=== PATIENT | male | born 1965 | race Caucasian/White ===

== ENCOUNTER 2019-02-11 07:34 | Day surgery (SDC) | payer OTHER ==
[2019-02-11] VITALS (15 sets, daily range): BP systolic 119–140; BP diastolic 68–87; PULSE 60–81; RESP 15–19; Ht 167.6 cm; Wt 82.3 kg
[~2019-02-11] VITALS: Ht 167.6 cm; Wt 82.3 kg
[~2019-02-11 07:34] MED LIST: SEVOFLURANE 15 MIN ONE
[2019-02-11] MEDS ORDERED: CEFAZOLIN 2 GM/50 ML (PMX) 50 ML IVPB ONE (08:00)
[2019-02-11] MEDS ORDERED: SOD CHLORIDE 0.9% 1,000 ML IV SCH (08:00)
--- NOTE | 2019-02-11 09:35 | PREAC ---
Date/Time of Note Date/Time of Note DATE: 02/11/19 TIME: 09:33 Anesthesia Eval and Record Evaluation Time Pre-Procedure Interview DATE: 02/11/19 TIME: 09:33 Age 53 Sex male NPO: 8 hrs Preoperative diagnosis cholelithiasis Planned procedure laparoscopic cholecystectomy Past Medical History Past Medical History: Includes Cardio: Dyslipidemia GI: Other (fatty liver vs. cirrhosis on imaging) Surgery & Anesthesia Issues No known issue Meds Anticoagulation: No Beta Bhavesh within 24 hr: No Reason Beta Bhavesh not given: Pt. not on B-Bhavesh No Active Prescriptions or Reported Meds Current Medications Sodium Chloride 1,000 ml @ 75 mls/hr [id number] IV ; Start 02/11/19 at 08:00; Stop 02/11/19 at 21:19 Meds reviewed: Yes Allergies Coded Allergies: No Known Drug Allergies (Unverified Allergy, Unknown, 02/10/19) Allergies Reviewed: Yes Labs/Studies Labs Reviewed: Reviewed by anesthesiologist test: N/A Pre-procedure Exam Last vitals Vital Signs Date Temp Pulse Resp B/P (MAP) Pulse Ox O2 O2 Flow FiO2 Time Delivery Rate 02/11/19 97.7 81 18 128/86 95 Room Air 08:34 (100) Airway: Adequate mouth opening, Adequate thyromental dist Mallampati: Mallampati II Teeth: Normal Lung: Normal Heart: Normal ASA Physical Status ASA physical status: 2 Emergency: None Planned Anesthetic General/MAC: ETT Nerve block: TAP (bilateral) Planned Pain Management Single shot nerve block, Parenteral pain med Pre-operative Attestations Prior to commencing anesthesia and surgery, the patient was re-evaluated, there was verification of: *The patient's identity *The results of appropriate recent lab work and preoperative vital signs *The above evaluation not changing prior to induction *Anesthetic plan, risk benefits, alternative and complications discussed with patient/family; questions answered; patient/family understands, accepts and wishes to proceed. Care Administrative Tech used LUCAS POND MD Feb 11, 2019 09:35
[2019-02-11] MEDS ORDERED: MIDAZOLAM 1 MG/ML 2 ML INJ ONE (09:41)
[2019-02-11] MEDS ORDERED: FENTAnyl 50 MCG/ML VIAL ONE (09:46)
[2019-02-11] MEDS ORDERED: ROPIVACAINE 0.5 % 30 ML VIAL ONE (09:47)
[2019-02-11] MEDS ORDERED: LIDOCAINE 2% (SDV) 5 ML INJ ONE (09:57)
[2019-02-11] MEDS ORDERED: ROCURONIUM 50 MG INJ ONE (09:57)
[2019-02-11] MEDS ORDERED: PROPOFOL 40 ML ONE (09:57)
[2019-02-11] MEDS ORDERED: SUCCINYLCHOLINE CHLORIDE 100 MG/5 ML SYG IV ONE (09:57)
[2019-02-11] MEDS ORDERED: DEXAMETHASONE 4 MG/ML 5 ML INJ ONE (09:58)
[2019-02-11] MEDS ORDERED: ONDANSETRON 4 MG INJ ONE (09:58)
[2019-02-11] MEDS ORDERED: CEFAZOLIN 1 GM INJ ONE (09:58)
[2019-02-11] MEDS ORDERED: FAMOTIDINE 20 MG INJ ONE (09:58)
[2019-02-11] MEDS ORDERED: HYDROmorphONE 2 MG/ML SYG ONE (10:01)
[2019-02-11] MEDS ORDERED: EPHEDrine 25 MG/5 ML SYG ONE (10:13)
[2019-02-11] MEDS ORDERED: NEOSTIGMINE 3 MG/3 ML SYRINGE ONE (10:21)
[2019-02-11] MEDS ORDERED: GLYCOPYRROLATE 0.4 MG INJ ONE (10:21)
[2019-02-11] MEDS ORDERED: HYDROCODONE/APAP (5/325) TAB PO ONE (10:30)
--- NOTE | 2019-02-11 10:30 | OPR ---
Date/Time of Note Date/Time of Note DATE: 02/11/19 TIME: 10:28 Operative Report Procedure Date: Feb 11, 2019 Preoperative Diagnosis symptomatic gallstones Postoperative Diagnosis same Operation/Procedure Performed laparoscopic cholecystectomy Surgeon see signature line Embedded Systems Software Developer Charles Henry Anesthesia Type: general Estimated Blood Loss: 0 - 10 ml's Transfusion none Specimen gallbladder Grafts/Implants none Complications none Pt Condition Post Procedure: stable Indications This is a 53-year-old male with symptomatic gallstones. He requires surgical excision of his gallbladder. Risks alternatives benefits and percent were discussed the patient. Patient expressed understanding consents to the operation. Procedure Description Patient is taken to the OR and prepped and draped in usual sterile fashion. Surgical time was performed. IV antibiotics given. Infraumbilical transverse incision was made with a 15 blade. Dissection with cautery was carried onto the fascia. Fascia was grasped with [place]'s and divided with curved Mcadams scissors. 0 Vicryl U stitch was placed into the fascia. Talley trocar was introduced. Pneumoperitoneum is established. Midepigastric 12 mm optical trochars were placed under direct position. Right upper quadrant upper flank 5 mm optical tr ochars were placed under direct visualization. Upon initial inspection there are some adhesions of the gallbladder which are taken down bluntly. The gallbladder was retracted lateral cephalad direction. [place] graspers were used to dissect out the cystic duct and cystic artery. The critical view was established. The cystic duct is divided with 3 clips proximally clipped distal. The cystic duct was then divided with laparoscopic scissors. Cystic artery was divided in a similar fashion with 3 clips proximal 1 clip distal and the division was performed laparoscopic scissors. The gallbladder is taken of the gallbladder bed. Good hemostasis established. The gallbladder is retrieved using Endo Catch bag. Ports removed under direct visualization. 0 Vicryl sutures tied down. Skin is closed and skin jigar. A tap block was provided by the anesthesiologist. Dry dressings were applied. Melani PALOMO Feb 11, 2019 10:30
--- NOTE | 2019-02-11 10:46 | PAC ---
Date/Time of Note Date/Time of Note DATE: 02/11/19 TIME: 10:46 Post-Anesthesia Notes Post-Anesthesia Note Last documented vital signs Vital Signs Date Temp Pulse Resp B/P (MAP) Pulse Ox O2 O2 Flow FiO2 Time Delivery Rate 02/11/19 97.7 81 18 128/86 95 Room Air 08:34 (100) Activity: WNL Respiratory function: WNL Cardiovascular function: WNL Mental status: Baseline Pain reasonably controlled: Yes Hydration appropriate: Yes Nausea/Vomiting absent: Yes Comments BP: 131/77 HR: 67 RR: 15 T: 98 SaO2: 100% LUCAS POND MD Feb 11, 2019 10:46
[2019-02-11] MEDS ORDERED: HYDROmorphONE 1 MG/5 ML IV SYRINGE IV PRN ×3 (11:00)
[2019-02-11] MEDS ORDERED: OXYCODONE/ACETAMINOPHEN (5/325) TAB PO PRN (11:00)
[2019-02-11] MEDS ORDERED: PROCHLORPERAZINE 10 MG INJ IV PRN (11:00)
[2019-02-11] MEDS ORDERED: MEPERIDINE 25 MG INJ IV PRN (11:00)
[2019-02-11] MEDS ORDERED: ONDANSETRON 4 MG INJ IV PRN (11:00)
[2019-02-11] MEDS ORDERED: DIPHENHYDRAMINE 50 MG INJ IV PRN (11:00)
[2019-02-11] MEDS ORDERED: FENTAnyl 50 MCG/ML VIAL IV PRN ×3 (11:00)
== END 2019-02-11 12:06 | disposition home or self-care (01) ==
LOC: SDS 07:34
PROVIDERS: ATTEND Surgery
DX: K80.20 Calculus of gallbladder without cholecystitis without obstruction (principal)
CPT/HCPCS: 47562; 88304; J0690; J1100; J1170; J2250; J2405; J2710; J2795; J3010